=== PATIENT | male | born 1945 | race Caucasian/White ===

== ENCOUNTER → 2016-06-19 | Outpatient (CLI) | payer OTHER, BC ==
[~2016-06-19] MED LIST: CLC100 PO; FRRS300 PO; LRT5 PO; MULT-506 PO; NITR-5 PO; VALA500T60 PO
[2016-06-19 09:55] LABS: BLOOD UREA NITROGEN 21 mg/dl (7-18); CALCIUM 8.7 mg/dl (8.5-10.1); CARBON DIOXIDE 30 mmol/L (21-32); CHLORIDE 110 mmol/L (98-107); CREATININE 0.94 mg/dl (0.60-1.40); GLUCOSE 99 mg/dl (70-99); POTASSIUM 4.3 mmol/L (3.5-5.1); SODIUM 144 mmol/L (136-145)
[2016-06-19 09:58] LABS: CHOLESTEROL 129 mg/dl (0-200); CHOLESTEROL/HDL RATIO 2.9; HDL CHOLESTEROL 45 mg/dl; LDL CHOLESTEROL CALCULATED 65 mg/dl; TRIGLYCERIDES 94 mg/dl (0-150); VERY LOW DENSITY LIPOPROT CALC 19 mg/dl
[2016-06-19 10:25] LABS: ESTIMATED AVERAGE GLUCOSE 111 mg/dl; HA1C FLAG Normal (Normal)
--- NOTE | 2016-06-25 13:08 | CODING QUERY MEDICAL NECESSITY ---
SUPPORTING DIAGNOSIS NEEDED A supporting diagnosis is required for the test/procedure performed on this patient in order for us to be reimbursed by the patient's insurance. Please provide a supporting diagnosis for the following test/procedure listed below next to the test name along with your signature. *If there is no additional diagnosis for this patient that would support the following test/procedure please document that below next to the test/procedure. Test(s)/Procedure(s) that require a supporting diagnosis: * GLYCATED HEMOGLOBIN DIAGNOSIS: * DOS: 06/19/16 Provider Signature: Date: Thank you Madyson Burns Health Information Management Once completed, please kindly fax back to [phone] For questions please call [phone]
== END | disposition home or self-care (01) ==
LOC: C.LAB1850 07:30
PROVIDERS: ATTEND Family Medicine
DX: Z13.1 Encounter for screening for diabetes mellitus (principal); Z13.220 Encounter for screening for lipoid disorders

== ENCOUNTER → 2017-02-08 | Outpatient (CLI) | payer OTHER, BC | END | disposition home or self-care (01) | LOC: C.LAB1850 11:05 | PROVIDERS: ATTEND Urology | DX: C61 Malignant neoplasm of prostate (principal) ==

== ENCOUNTER → 2017-06-18 | Day surgery (SDC) | payer OTHER, BC ==
[2017-05-30 15:19] VITALS: Ht 186.7 cm; Wt 112.7 kg
[~2017-06-18] VITALS: Ht 186.7 cm; Wt 112.7 kg
[~2017-06-18] MED LIST changes: -CLC100 PO; -FRRS300 PO; +LIDOCAINE HCL 2% 2 ML VIAL (20MG/ML) ONE; -LRT5 PO; -MULT-506 PO; -NITR-5 PO; +PROPOFOL IV EMULSION 10 MG/ML 20 ML VIAL IV ONE; +SODIUM CHLORIDE 0.9% 500ML 500 ML IV ONE; -VALA500T60 PO
--- NOTE | 2017-06-18 08:41 | Endo History and Physical ---
History & Physical Date of Service: Jun 18, 2017. Chief Complaint: history of polyps Referring Physician: Dr. Carmelina Day History of Present Illness 72 yo CM who presents for colonoscopy secondary to history of colon polyps. Past Surgical History Hx Cardiac Surgery: No Hx Internal Defibrillator: No Hx Pacemaker: No Hx Abdominal Surgery: Yes (HIATAL HERNIA, APPENDECTOMY) Hx of Implantable Prosthesis: No Hx Post-Op Nausea and Vomiting: No Hx Cancer Surgery: Yes (PROSTATECTOMY) Hx Thoracic Surgery: No Hx Orthopedic: Yes (RIGHT/LEFT SHOULDER ARTHROSCOPY) Hx Urinary Tract Surgery: No Family History None Social History Smoking Status: Former Smoker Hx Substance Use: No Hx Alcohol Use: No Allergies Coded Allergies: Penicillins (Verified Allergy, Unknown, ?, 05/30/17) Current Medications Reported Home Medications Medications Dose Route/Sig Max Daily Dose Days Date Category No Active Prescriptions or Reported Medications Rx Vital Signs Weight (Kilograms): 112.73 Height (Feet): 6 Height (Inches): 1.5 Date Time Temp Pulse Resp B/P (MAP) Pulse Ox O2 Delivery O2 Flow Rate FiO2 06/18/17 08:11 36.6 51 20 181/92 (121) 96 Room Air Physical Exam General Appearance: WD/WN, no apparent distress Respiratory/Chest: Auscultation: breath sounds normal Cardiovascular: Heart Auscultation: RRR Abdomen: Bowel Sounds: normal Inspection & Palpation: soft, non-distended, no tenderness, guarding & rebound Assessment and Plan Assessment: 72 yo CM who presents for colonoscopy secondary to history of colon polyps. Plan: Proceed with colonoscopy.
--- NOTE | 2017-06-18 09:12 | Discharge Instructions ---
Endoscopy Patient Instructions Date / Procedure(s) Performed Jun 18, 2017. Colonoscopy Allergy Information Coded Allergies: Penicillins (Verified Allergy, Unknown, ?, 06/18/17) Discharge Date / Findings Jun 18, 2017. Diverticulosis Internal hemorrhoids Medication Instructions OK to resume all medications today as prescribed Reported Home Medications Medications Dose Route/Sig Max Daily Dose Days Date Category No Active Prescriptions or Reported Medications Rx Provider Instructions Activity Restrictions - No exercising or heavy lifting for 24 hours. - Do not drink alcohol the day of the procedure. - Do not drive a car or operate machinery until the day after the procedure. - Do not make any important decisions or sign important papers in 24 hours after the procedure. Following Day: - Return to full activity which may include returning to work/school. Diet Start your diet with liquids and light foods (jello, soup, juice, toast). Then eat your usual diet if not nauseated. Treatment For Common After Affects For mild abdominal pain, bloating, or excessive gas: - Rest - Eat lightly - Lie on right side Follow-Up Information Follow-up with Dr. Carmelina Day as scheduled Anesthesia Information What You Should Know You have had a procedure that required some medicine to reduce anxiety and discomfort. This treatment is called moderate sedation. After receiving the treatment, you may be sleepy, but you will be able to breathe on your own. The effects of the treatment may last for several hours. Follow these instructions along with Activity/Diet recommendations noted above: * Do NOT do anything where dizziness or clumsiness would be dangerous. * Rest quietly at home today, then you can be up and about tomorrow. * Have a responsible person stay with you the rest of today. * You may have had an I.V. today. If so, you may take the dressing off later today. Recommendations Call your doctor if: * Trouble breathing * Continuous vomiting for more than 24 hours * Temperature above 101 degrees * Severe abdominal pain or bloating * Pain not relieved by pain medicine ordered * There is increased drainage or redness from any incision * A large amount of rectal bleeding greater than 2-3 tablespoons. (If you had a polyp/s removed or have hemorrhoids, a small amount of blood - from the rectum is to be expected.) * You have any unanswered questions or concerns. IN THE EVENT OF A SERIOUS EMERGENCY, GO TO THE NEAREST EMERGENCY ROOM Your discharge instructions were prepared by provider Kip Linares. Patient Instructions Signature Page Ruben Garrett Patient (or Guardian) Signature/Date: I have read and understand the instructions given to me by my caregivers. Caregiver/RN/Doctor Signature/Date: The above-named patient and/or guardian has received patient instructions on this date. + Original Patient Signature Page (only) stays with chart. Please make copy for patient.
--- NOTE | 2017-06-18 09:19 | GI REPORT ---
Procedure Date: 06/18/2017 8:47 AM Procedure: Colonoscopy Indications: High risk colon cancer surveillance: Personal history of colonic polyps Medicines: Monitored Anesthesia Care Complications: No immediate complications. Estimated Blood Loss: Estimated blood loss: none. Procedure: Pre-Anesthesia Assessment: - Prior to the procedure, a History and Physical was performed, and patient medications and allergies were reviewed. The patient's tolerance of previous anesthesia was also reviewed. The risks and benefits of the procedure and the sedation options and risks were discussed with the patient. All questions were answered, and informed consent was obtained. Prior Anticoagulants: The patient has taken no previous anticoagulant or antiplatelet agents. ASA Grade Assessment: II - A patient with mild systemic disease. After reviewing the risks and benefits, the patient was deemed in satisfactory condition to undergo the procedure. After I obtained informed consent, the scope was passed under direct vision. Throughout the procedure, the patient's blood pressure, pulse, and oxygen saturations were monitored continuously. The scope was introduced through the anus and advanced to the terminal ileum. The colonoscopy was performed without difficulty. The patient tolerated the procedure well. The quality of the bowel preparation was good. The terminal ileum, ileocecal valve, appendiceal orifice, and rectum were photographed. Findings: The perianal and digital rectal examinations were normal. Multiple small-mouthed diverticula were found in the sigmoid colon. Non-bleeding internal hemorrhoids were found during retroflexion. The hemorrhoids were small. Impression: - Diverticulosis in the sigmoid colon. - Non-bleeding internal hemorrhoids. - No specimens collected. Recommendation: - Resume previous diet. - Continue present medications. - No repeat colonoscopy due to age and the absence of advanced adenomas. - Return to primary care physician as previously scheduled. Kip Linares DO 06/18/2017 9:19:14 AM This report has been signed electronically. Note Initiated On: 06/18/2017 8:47 AM I attest to the content of the Intraoperative Record and orders documented therein, exceptions below
[2017-06-18 09:55] VITALS: BP 168/93; PULSE 51; O2SAT 98
--- NOTE | 2017-06-18 10:24 | Anesthesiology Progress Note ---
Anesthesia Post Op Note Date & Time Jun 18, 2017 at 10:24 Vital Signs Pain Intensity: 0 Vital Signs Past 12 Hours Date Time Temp Pulse Resp B/P (MAP) Pulse Ox O2 Delivery O2 Flow Rate FiO2 06/18/17 09:55 51 20 168/93 (118) 98 Room Air 06/18/17 09:36 52 20 149/88 (108) 97 Room Air 06/18/17 09:19 61 20 127/80 (96) 95 Room Air 06/18/17 08:11 36.6 51 20 181/92 (121) 96 Room Air Notes Mental Status: alert / awake / arousable, participated in evaluation Pt Amnestic to Procedure: Yes Nausea / Vomiting: adequately controlled Pain: adequately controlled Airway Patency, RR, SpO2: stable & adequate BP & HR: stable & adequate Hydration State: stable & adequate Anesthetic Complications: no major complications apparent
== END | disposition home or self-care (01) ==
LOC: C.GI 07:36
PROVIDERS: ATTEND Internal Medicine
DX: Z12.11 Encounter for screening for malignant neoplasm of colon (principal); K57.30 Diverticulosis of large intestine without perforation or abscess without bleeding; K64.8 Other hemorrhoids; Z86.010 Personal history of colon polyps; Z85.46 Personal history of malignant neoplasm of prostate; Z88.0 Allergy status to penicillin; Z90.89 Acquired absence of other organs; Z98.890 Other specified postprocedural states; Z87.891 Personal history of nicotine dependence

== ENCOUNTER 2022-08-14 15:43 | Observation (INO) ==
--- NOTE | 2022-08-14 15:48 | ED Triage Note ---
Date of Service August 14, 2022 History of Present Illness This patient was briefly evaluated while in triage. An abbreviated physical exam was performed. This patient is a 77-year-old Male who presents to the ED for evaluation of double vision, head pressure, and diaphoresis. Patient states he was on his way to work when these symptoms presented. He reports having multiple similar episodes in the last week. He denies recent illness, fever/chills, n/v, diarrhea, chest pain, SOB, abdominal. Denies stroke like symptoms. Physical Exam Constitutional: alert and oriented x3. no acute distress. HEENT: normocephalic, atraumatic. normal conjunctiva.PERRLA. EOM's grossly intact. Respiratory: lungs are clear to auscultation without wheezes, rhonchi, or rales bilaterally. equal chest rise. normal respiratory effort, no accessory muscle use. Cardiovascular: normal heart sounds without murmur. regular rate and rhythm. GI: abdomen is soft, nontender. No palpable masses. No rebound tenderness or guarding. No CVA tenderness MSK: moves all 4 extremities spontaneously Peripheral vascular: extremities warm and well perfused Neuro: without focal neuro deficits. Psych:appropriate mood and affect. Initial orders for labs and / or imaging were placed and patient was placed in the waiting area until a bed is available. Please see further documentation for the full ED course.
[2022-08-14 16:27] LABS: Basophils # (auto) 0.04 K/uL (0-0.2); Basophils % (auto) 0.6 %; Eosinophils # (auto) 0.15 K/uL (0-0.50); Eosinophils % (auto) 2.4 %; Hemoglobin 14.9 g/dl (14.0-18.0); Immature Granulocytes # (auto) 0.01 K/uL (0.01-0.20); Immature Granulocytes % (auto) 0.2 %; Lymphocytes # (auto) 1.77 K/uL (1.2-3.4); Lymphocytes % (auto) 27.9 %; Mean Corpuscular Hemoglobin 32.3 pg (25.0-34.0); Mean Corpuscular Hgb Conc 34.7 g/dL (32.0-36.0); Mean Corpuscular Volume 93.3 fL (80.0-100.0); Mean Platelet Volume 10.9 fL (9.4-12.4); Monocytes % (auto) 9.5 %; Neutrophils # (auto) 3.77 K/uL (1.40-6.50); Neutrophils % (auto) 59.4 %; Platelet Count 211 K/uL (130-400); RDW Coefficient of Variation 13.2 % (11.5-14.5); RDW Standard Deviation 45.1 fL (36.4-46.3); Red Blood Count 4.61 M/uL (4.70-6.10); White Blood Count 6.34 K/ul (4.8-10.8)
[2022-08-14 16:37] LABS: Partial Thromboplastin Time 28.2 Seconds (21.0-31.0); Prothrombin Time 10.9 Seconds (9.0-12.0)
[2022-08-14 16:45] LABS: Albumin Level 4.3 gm/dl (3.4-5.0); Bilirubin,Total 0.5 mg/dl (0.2-1.0); Calcium 9.2 mg/dl (8.6-10.3); Potassium 4.4 mmol/L (3.5-5.1)
[2022-08-14 16:51] LABS: Albumin Globulin Ratio 1.5 (0.9-2); Creatinine Clr Calc Pharmacy 68.3 ml/min; Est GFR (African American) 80.5 ml/min; Est GFR (Non-African American) 69.4 ml/min; Globulin 2.8 gm/dl (2.5-4.0); Total Protein 7.1 gm/dl (6.0-8.3); Troponin I High Sensitivity 24.3 pg/ml (0-20)
--- NOTE | 2022-08-14 17:15 | CT Scan Report ---
CT head/brain wo con CLINICAL HISTORY: double vision, headache Technique: Contiguous axial CT images of the head were acquired from the base of the skull to the marycruz ruma without intravenous contrast administration. Images were viewed in brain, subdural and [facility]. Automated dose lowering techniques and/or adjustment according to patient size were utilized for this exam. Comparison: None available at the time of this dictation. Findings: Areas of decreased attenuation are present in the periventricular and subcortical white matter bilate rally consistent with small vessel ischemic disease. Generalized cerebral atrophy with commensurate e nlargement of the ventricles, sulci, and cisterns is also present. There is no acute intracranial hem orrhage or evidence of acute territorial infarction. No shift of the midline structures, mass effect, or extra-axial abnormalities are shown. Atherosclerotic calcifications are present in the intracran ial segments of the internal carotid arteries. Imaged portions of the paranasal sinuses and mastoid air cells are clear. The orbits appear normal. There are no acute fractures of the calvaria or scalp swelling. Impression: No acute intracranial hemorrhage, no evidence of acute territorial infarction or other acute intracra nial disease process. ACT 112: Negative or not required by law. Electronically signed by: Mike Villatoro M.D. 08/14/2022 5:14 PM
--- NOTE | 2022-08-14 19:58 | Emergency Department Note ---
Impression & Plan Atrial fibrillation, new onset, Blurry vision, bilateral, Elevated troponin, Weakness ED Provider Note NAME: NAVYA OZUNA AGE: 77 SEX: M : 1945 ARRIVES VIA: Walk-In INFORMANT: Patient, ED PROVIDER(S): Nguyễn Wilson MD CHIEF COMPLAINT: Lightheadedness, dizziness, fatigue MEDICAL DECISION MAKING: Patient presents to concern for lightheadedness and dizziness as well as feeling as though his arm seemed heavy. The patient was noted to be in A-fib. IV was established and blood work obtained. Repeat EKG obtained which shows A-fib. The patient has had 6 episodes in the last 8 weeks most recently today as well as an episode on Saturday. Patient has never had any formal echocardiogram. The patient's blood work shows a mild leukopenia with a normal H&H and platelet count. Kidney function is unremarkable. Troponin is slightly elevated at 24.3. No active chest pain or shortness of breath. Lyme is negative. COVID-negative. I did speak with the on-call hospital service Dr. Brock and the patient was admitted to the medicine service. IV heparin was ordered. Critical Care: I have personally spent 36 minutes of critical care time in direct management of this patient. This includes bedside care, interpretation of diagnostic studies, and testing, discussion with consultants, patient, and family members, and other require inpatient management activities. This 36 minutes is in excess of all [facility] billable procedures. Prior /Outside records reviewed: I did review a wellness visit from Ivis lepe from January 2022 which was just for a general wellness exam. Differential diagnosis: Infection, dehydration, metabolic abnormality, hypo/hyperglycemia, electrolyte disturbance, anemia, hypoxia, cardiac sources, intracerebral event, toxicologic, neurologic, as well as other pathologies. Diagnostics, as interpreted by me: ECG:A-fib, rate of 72, normal QRS, left axis deviation no ST elevations. Repeat EKG interpreted by me A-fib, rate of 63, normal QRS normal axis no ST elevations. Cardiac monitoring: An order was placed for continuous cardiac monitoring. The monitor shows a rate of 67 with irregular irregular rhythm. Patient was placed on pulse oximetry Medical decision rules: None Imaging studies: See below I informally reviewed the patient's CT of the head which showed no obvious ICH HPI: Patient presents due to concern for some associated blurry vision and head pressure as well as feeling as though his arm was heavy. Patient states that he had several episodes in the last 8 weeks. Patient denies any chest pains or shortness of breath. Patient denies any falls or trauma. Patient states that the episode today that he was out riding some stumps and working on his truck when he had an acute onset of this associated feeling of weakness. Patient denies any acute symptoms at this time other than feeling "drained." Patient denies any tobacco or drug use. The patient denies any falls or trauma. Patient states that the symptoms last about 10 to 15 minutes. Patient denies any slurred speech facial droop numbness tingling or focal weakness at this time. Patient does complain of generalized weakness. Patient does not take any medications. Patient states that his most recent wellness visit was with Dr. Pritchard in January with no issues at that time. PAST MEDICAL HISTORY: See Below PAST SURGICAL HISTORY: See Below SOCIAL HISTORY: See Below HOME MEDICATIONS: See Below ALLERGIES: See Below VITALS: See Below PHYSICAL EXAMINATION: GENERAL: NAD, non-toxic. EYE EXAM: Normal conjunctiva. PERRL, no anisocoria and EOM's grossly intact w/o pain. NECK: Supple, no nuchal rigidity, no adenopathy, non-tender. No signs of meningismus. FROM of the neck with good chin to chest and neck extension. No stridor. LUNGS: Clear to auscultation. Normal chest wall mechanics. HEART: Irregularly irregular, no MRG. ABDOMEN: Abdomen soft, non-tender, no masses, no rebound or guarding. BACK: No CVA TTP. SKIN: No rashes and no bruising. UPPER EXTREMITIES: Several absent digits of the right hand compared to left, well-healed. Otherwise upper extremities are grossly unremarkable LOWER EXTREMITIES: Grossly normal, no edema. NEURO EXAM: A&O x3, cranial nerves II-XII grossly intact, normal speech, moves all 4 extremities. Good [id number], no drift and no sensory deficits Past Med/Surg History Medical History Esophageal reflux Prostate cancer Prostate cancer Surgical History H/O rotator cuff surgery History of appendectomy S/P appendectomy S/P prostatectomy S/P shoulder surgery S/P wisdom tooth extraction Family History Father Emphysema lung Sister Breast cancer Brother Diabetes Mother Leukemia Denies family history of Ovarian cancer Prostate cancer Myocardial infarction Colorectal cancer Social History Smoking Status: Never smoker Age Started Using Tobacco: 14; Age Quit Using Tobacco: 39; packs per day: 1.0; Second Hand Exposure: Yes; Do You Dip or Chew Tobacco: No; Hx Alcohol Use: No Hx Substance Use: No Preferred Language: Slovenian Communication Ability: Effective Visual Impairment: No Limitations Hearing Ability: Normal Wire Welder Required: No Beliefs That Will Affect Care: None marital status: Current Living Situation: Spouse current occupational status: employed 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 How many Children do You have: 1 How many Children do You have Comment: 1 daughter and 2 people considered daughters/ 3 grandchildren Feels Safe at Home: Yes Childhood Exposure to Second-Hand Smoke: Yes Diet: regular caffeine: Yes during the past year weight has: remained stable Dental Care, Regularly: Yes Physical Activity Frequency: Daily Seatbelt Use: always Sunscreen Use: Yes Assistive Devices: Denture - Upper, Denture - Lower and Glasses Allergies Allergies Allergy/AdvReac Type Severity Reaction Status Date / Time Penicillins Allergy Unknown Verified 02/06/22 08:53 Home Meds Home Medications Medication Instructions Recorded Confirmed No Known Home Medications 01/30/21 08/15/22 Results & Data (ED) Vital Signs Vital Signs - 24 hr 08/14/22 15:45 08/14/22 19:54 08/14/22 19:53 Temperature 36.7 C Temperature Source Temporal Artery Scan Pulse Rate 74 74 77 Respiratory Rate 20 19 Respiratory Effort / Characteristics Non-Labored Spontaneous Respiratory Depth Normal Respiratory Pattern Regular Blood Pressure 161/93 H Blood Pressure Mean 115 Pulse Oximetry 96 97 Oxygen Delivery Method Room Air Room Air Sepsis Recent Fever Within 48 Hours No Sepsis New/Unexplained Change in Mental Status No Sepsis Action Taken by Nursing No Action Required 08/14/22 20:00 08/14/22 20:00 08/14/22 20:15 Temperature Temperature Source Pulse Rate 78 74 Respiratory Rate 22 13 Respiratory Effort / Characteristics Respiratory Depth Respiratory Pattern Blood Pressure 172/116 H Blood Pressure Mean 134 Pulse Oximetry 97 93 Oxygen Delivery Method Room Air Room Air Sepsis Recent Fever Within 48 Hours Sepsis New/Unexplained Change in Mental Status Sepsis Action Taken by Nursing 08/14/22 20:30 08/14/22 20:45 08/14/22 21:00 Temperature Temperature Source Pulse Rate 79 75 73 Respiratory Rate 20 21 24 Respiratory Effort / Characteristics Respiratory Depth Respiratory Pattern Blood Pressure 195/125 H Blood Pressure Mean 148 Pulse Oximetry 97 94 96 Oxygen Delivery Method Room Air Room Air Room Air Sepsis Recent Fever Within 48 Hours Sepsis New/Unexplained Change in Mental Status Sepsis Action Taken by Nursing 08/14/22 21:30 08/14/22 21:36 Temperature Temperature Source Pulse Rate 75 73 Respiratory Rate 23 17 Respiratory Effort / Characteristics Respiratory Depth Respiratory Pattern Blood Pressure 171/106 H Blood Pressure Mean 127 Pulse Oximetry 97 94 Oxygen Delivery Method Room Air Room Air Sepsis Recent Fever Within 48 Hours Sepsis New/Unexplained Change in Mental Status Sepsis Action Taken by Assisted Medications Current Medication List: was personally reviewed by me Laboratory Data Attestation: I reviewed the patient's lab results. 08/14/22 16:16 08/14/22 16:16 Lab Results 08/14/22 08/14/22 08/14/22 Range/Units 16:16 16:16 16:16 WBC 6.34 (4.8-10.8) K/ul RBC 4.61 L (4.70-6.10) M/uL Hgb 14.9 (14.0-18.0) g/dl Hct 43.0 (42.0-52.0) % MCV 93.3 (80.0-100.0) fL MCH 32.3 (25.0-34.0) pg MCHC 34.7 (32.0-36.0) g/dL RDW Std Deviation 45.1 (36.4-46.3) fL RDW Coeff of Romi 13.2 (11.5-14.5) % Plt Count 211 (130-400) K/uL MPV 10.9 (9.4-12.4) fL Immature Gran % (Auto) 0.2 % Neut % (Auto) 59.4 % Lymph % (Auto) 27.9 % [place] % (Auto) 9.5 % Eos % (Auto) 2.4 % Baso % (Auto) 0.6 % Neut # (Auto) 3.77 (1.40-6.50) K/uL Lymph # (Auto) 1.77 (1.2-3.4) K/uL [place] # (Auto) 0.60 H (0.11-0.59) K/uL Eos # (Auto) 0.15 (0-0.50) K/uL Baso # (Auto) 0.04 (0-0.2) K/uL Immature Gran # (Auto) 0.01 (0.01-0.20) K/uL PT 10.9 (9.0-12.0) Seconds INR 1.0 (0.9-1.1) APTT 28.2 (21.0-31.0) Seconds PTT Ratio 1.0 Sodium 141 (136-145) mmol/L Potassium 4.4 (3.5-5.1) mmol/L Chloride 108 H (98-107) mmol/L Carbon Dioxide 27 (21-32) mmol/L Anion Gap 6 (3-11) BUN 27 H (6-23) mg/dl Creatinine 1.04 (0.6-1.4) mg/dl Est Cr Clr Drug Dosing 68.3 ml/min Est GFR ( Amer) 80.5 ml/min Est GFR (Non-Af Amer) 69.4 ml/min BUN/Creatinine Ratio 26.0 H (10-20) Glucose 101 H (70-99(Fasting)) mg/dl Calcium 9.2 (8.6-10.3) mg/dl Total Bilirubin 0.5 (0.2-1.0) mg/dl AST 19 (13-39) U/L ALT 16 (7-52) U/L Alkaline Phosphatase 72 (34-104) U/L Troponin I High Sens 24.3 H (0-20) pg/ml Total Protein 7.1 (6.0-8.3) gm/dl Albumin 4.3 (3.4-5.0) gm/dl Globulin 2.8 (2.5-4.0) gm/dl Albumin/Globulin Ratio 1.5 (0.9-2) Lyme Disease IgG Ab (Negative) Lyme Disease IgM Ab (Negative) SARS-CoV-2, RNA, NAAT (NEGATIVE) 08/14/22 08/14/22 Range/Units 16:16 20:20 WBC (4.8-10.8) K/ul RBC (4.70-6.10) M/uL Hgb (14.0-18.0) g/dl Hct (42.0-52.0) % MCV (80.0-100.0) fL MCH (25.0-34.0) pg MCHC (32.0-36.0) g/dL RDW Std Deviation (36.4-46.3) fL RDW Coeff of Romi (11.5-14.5) % Plt Count (130-400) K/uL MPV (9.4-12.4) fL Immature Gran % (Auto) % Neut % (Auto) % Lymph % (Auto) % [place] % (Auto) % Eos % (Auto) % Baso % (Auto) % Neut # (Auto) (1.40-6.50) K/uL Lymph # (Auto) (1.2-3.4) K/uL [place] # (Auto) (0.11-0.59) K/uL Eos # (Auto) (0-0.50) K/uL Baso # (Auto) (0-0.2) K/uL Immature Gran # (Auto) (0.01-0.20) K/uL PT (9.0-12.0) Seconds INR (0.9-1.1) APTT (21.0-31.0) Seconds PTT Ratio Sodium (136-145) mmol/L Potassium (3.5-5.1) mmol/L Chloride (98-107) mmol/L Carbon Dioxide (21-32) mmol/L Anion Gap (3-11) BUN (6-23) mg/dl Creatinine (0.6-1.4) mg/dl Est Cr Clr Drug Dosing ml/min Est GFR ( Amer) ml/min Est GFR (Non-Af Amer) ml/min BUN/Creatinine Ratio (10-20) Glucose (70-99(Fasting)) mg/dl Calcium (8.6-10.3) mg/dl Total Bilirubin (0.2-1.0) mg/dl AST (13-39) U/L ALT (7-52) U/L Alkaline Phosphatase (34-104) U/L Troponin I High Sens (0-20) pg/ml Total Protein (6.0-8.3) gm/dl Albumin (3.4-5.0) gm/dl Globulin (2.5-4.0) gm/dl Albumin/Globulin Ratio (0.9-2) Lyme Disease IgG Ab Negative (Negative) Lyme Disease IgM Ab Negative (Negative) SARS-CoV-2, RNA, NAAT NEGATIVE (NEGATIVE) Administered Medications Heparin Sodium/Dextrose (Heparin Sodium/Dextrose) 25,000 units in 500 mls @ 33 mls/hr IV .[id number] [facility]; Protocol Stop: 09/13/22 20:44 Last Titration: 08/15/22 06:00 Dose: 1,650 units/hr, 33 mls/hr Documented By: DULCE MARIA Co-signed By: CAMILA Titration: 08/15/22 06:00 Dose: 131 units/hr, 2.6 mls/hr Documented By: DULCE MARIA Co-signed By: ADOLFO Admin: 08/14/22 20:53 Dose: 1,550 units/hr, 31 mls/hr Documented By: MELIDA Co-signed By: JERRY Discontinued Medications Gadobutrol (Gadobutrol 65ml Vial) 10 ml IV ONCE ONE Stop: 08/15/22 01:27 Last Admin: 08/15/22 01:27 Dose: 10 ml Documented By: MIGUEL Sodium Chloride (Nss 1000ml) 500 mls @ 999 mls/hr IV .Q31M ONE Stop: 08/14/22 20:44 Last Infusion: 08/14/22 20:51 Dose: 0 mls/hr Documented By: Admin: 08/14/22 20:22 Dose: 999 mls/hr Documented By: MELIDA Imaging Data Radiologist's Impression: Head CT 08/14/22 15:51 CT head/brain wo con CLINICAL HISTORY: double vision, headache Technique: Contiguous axial CT images of the head were acquired from the base of the skull to the vertex without intravenous contrast administration. Images were viewed in brain, subdural and bone windows. Automated dose lowering techniques and/or adjustment according to patient size were utilized for this exam. Comparison: None available at the time of this dictation. Findings: Areas of decreased attenuation are present in the periventricular and subcortical white matter bilaterally consistent with small vessel ischemic disease. Generalized cerebral atrophy with commensurate enlargement of the ventricles, sulci, and cisterns is also present. There is no acute intracranial hemorrhage or evidence of acute territorial infarction. No shift of the midline structures, mass effect, or extra-axial abnormalities are shown. Atherosclerotic calcifications are present in the intracranial segments of the internal carotid arteries. Imaged portions of the paranasal sinuses and mastoid air cells are clear. The orbits appear normal. There are no acute fractures of the calvaria or scalp swelling. Impression: No acute intracranial hemorrhage, no evidence of acute territorial infarction or other acute intracranial disease process. ACT 112: Negative or not required by law. Electronically signed by: Mike Villatoro M.D. 08/14/2022 5:14 PM Discharge Plan Visit Data Chief Complaint: TIA Symptoms Stated Complaint: DOUBLE VISION,SWEATING,PRESSURE FRONT OF HEAD ED Provider: Nguyễn Wilson Discharge Problem: Atrial fibrillation, new onset, Blurry vision, bilateral, Elevated troponin, Weakness Discharge Instructions Interventions: ED Discharge Assessment Last Done: 08/14/22 22:46
[2022-08-14] MEDS ORDERED: SODIUM CHLORIDE 0.9% 1000ML 500 ML IV ONE (20:14)
[2022-08-14] MEDS ORDERED: Heparin IV Adult Wt-Based Standard *NO* Bolus Protocol IV ONE (20:16)
[2022-08-14] MEDS ORDERED: HEPARIN SODIUM/DEXTROSE 25,000 UNITS/500 ML BAG IV SCH (20:45)
--- NOTE | 2022-08-14 21:37 | History & Physical Report ---
Date of Service August 14, 2022 Assessment & Plan (1) Blurry vision, bilateral: Plan: 77 y/o male with a PMHx significant for prostate cancer s/p prostatectomy in remission here for evaluation of intermittent blurry vision with associated head pressure and occasional right arm weakness found to be in a fib, but admitted with concern for vertebral artery dissection. #Blurry Vision #Head Pressure #?Right arm weakness Patient presented with several instances of blurry vision and head pressure. There is also questionable right arm involvement with symptoms described as "arm in midair" and "feeling out of control". These symptoms more concerning for neurological etiology especially with the history of chiropractic manipulation of the neck. CT Head w/o was done in the ED and negative for intracranial abnormalities. High concern for arterial dissection. Would recommend further imaging of the vasculature of the MRA Head w/o, MRA Neck with/w/o and MRI brain w/o contrast. Lyme testing was also ordered. [] f/u MRI studies [] f/u Lyme [] AM BMP - Cr on admit 1.04 #A fib Patient found to be in atrial fibrillation with normal ventricular rate. Patient's symptoms likely unrelated as he is having bilateral blurry vision and head pressure associated with fatigue. Reasonable to continue with heparin as it was already started. Will plan for ECHO during hospital course. [] ECHO #Elevated troponin HsTrop slightly elevated at 24.3. Will trend [] f/u 12:00 Trop #Hypertensive state without diagnosis of HTN Patient typically normotensive. Would continue to monitor at this time as patient is hospitalized. #Prostate Cancer Patient s/p prostatectomy which has been curative. Code status: full DVT ppx: heparin gtt FENGI: Regular Diet Dispo: PCU/Tele See attending attestation for further documentation. (2) Pressure in head: (3) Atrial fibrillation with normal ventricular rate: (4) Prostate cancer: (5) Elevated troponin: (6) Elevated blood pressure reading without diagnosis of hypertension: History of Present Illness Chief Complaint: blurry vision, head pressure Primary Care Provider: Carmelina Day MD 77 y/o male with a PMHx significant for prostate cancer s/p prostatectomy in rem ission here for evaluation of intermittent blurry vision with associated head pressure and occasional right arm weakness. Patient has had five episodes of the above symptoms that last about 10-15 mi nutes in duration starting about 5-6 weeks ago. Most recent episodes were 08/12 and 08/13. The rapid sequence of symptoms prompted him to seek evaluation. He was prompted to the ED by his PCP. He denies any extremity pain/numbness/tingling with these episodes, urinary or fecal incontinence, CP, or SOB. Prior to this the patient was in good health with no chronic conditions. He does not take any medications. Of note patient sees a chiropractor monthly for HVLA of the cervical spine. In the ED he was hypertensive to 172/116. EKG notable for atrial fibrillation. Patient was started on heparin. Labs: Notable for HsTrop 24.3. Otherwise CBC CMP PT/PTT/INR unremarkable. Imaging: CT Head w/o Allergies Allergy/AdvReac Type Severity Reaction Status Date / Time Penicillins Allergy Unknown Verified 02/06/22 08:53 Home Medications Medication Instructions Recorded Confirmed Type No Known Home Medications 01/30/21 08/15/22 History apixaban 5 mg tablet (Eliquis) 5 mg PO BID #60 tabs 08/15/22 Rx lisinopril 20 mg tablet 20 mg PO DAILY #30 tabs 08/15/22 Rx Past Med/Surg History Medical History Esophageal reflux Prostate cancer Prostate cancer Surgical History H/O rotator cuff surgery History of appendectomy S/P appendectomy S/P prostatectomy S/P shoulder surgery S/P wisdom tooth extraction Family History Father Emphysema lung Sister Breast cancer Brother Diabetes Mother Leukemia Denies family history of Ovarian cancer Prostate cancer Myocardial infarction Colorectal cancer Social History Smoking Status: Never smoker Age Started Using Tobacco: 14; Age Quit Using Tobacco: 39; packs per day: 1.0; Second Hand Exposure: Yes; Do You Dip or Chew Tobacco: No; Hx Alcohol Use: No Hx Substance Use: No Preferred Language: Italian Communication Ability: Effective Visual Impairment: No Limitations Hearing Ability: Normal Geospatial Technologist Required: No Beliefs That Will Affect Care: None marital status: Current Living Situation: Spouse current occupational status: employed 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 How many Children do You have: 1 How many Children do You have Comment: 1 daughter and 2 people considered daughters/ 3 grandchildren Feels Safe at Home: Yes Childhood Exposure to Second-Hand Smoke: Yes Diet: regular caffeine: Yes during the past year weight has: remained stable Dental Care, Regularly: Yes Physical Activity Frequency: Daily Seatbelt Use: always Sunscreen Use: Yes Assistive Devices: Denture - Upper, Denture - Lower and Glasses Physical Exam Physical Exam: Gen: well appearing pleasant male in NAD HEENT: AT NC PERRL EOMI Resp: CTAB CV: irregularly irregular, no murmurs, rubs, or gallops, 2+ peripheral pulses Abd: soft, non-tender, non-distended, no palpable HSM or masses Skin: warm, well perfused, no rashes or bruising noted Psych: appropriate mood and affect MSK: no gross deformities Neuro: Gen: A&O x4 CN II-XII tested - intact and symmetric Strength: 5/5 in all muscle groups Reflexes: DTR 2+ symmetric Sensation: sensation to light touch intact and symmetric bilaterally Results & Data Results & Data Vital Signs (Past 12 Hours) Vital Signs Temp Pulse Resp BP Pulse Ox O2 Del Method 08/14/22 20:45 75 21 94 Room Air 08/14/22 20:30 79 20 97 Room Air 08/14/22 20:15 74 13 93 Room Air 08/14/22 20:00 172/116 H 08/14/22 20:00 78 22 97 Room Air 08/14/22 19:53 77 19 97 Room Air 08/14/22 19:54 74 08/14/22 15:45 36.7 C 74 20 161/93 H 96 Room Air Laboratory Results 08/14/22 16:16 08/14/22 16:[address] 08/14/22 15:51 CT head/brain wo con CLINICAL HISTORY: double vision, headache Technique: Contiguous axial CT images of the head were acquired from the base of the skull to the vertex without intravenous contrast administration. Images were viewed in brain, subdural and bone windows. Automated dose lowering techniques and/or adjustment according to patient size were utilized for this exam. Comparison: None available at the time of this dictation. Findings: Areas of decreased attenuation are present in the periventricular and subcorti janice white matter bilaterally consistent with small vessel ischemic disease. Generalized cerebral atrophy with commensurate enlargement of the ventricles, sulci, and cisterns is also present. There is no acute intracranial hemorrhage or evidence of acute territorial infarction. No shift of the midline structures, mass effect, or extra-axial abnormalities are shown. Atherosclerotic calcifications are present in the intracranial segments of the internal carotid arteries. Imaged portions of the paranasal sinuses and mastoid air cells are clear. The orbits appear normal. There are no acute fractures of the calvaria or scalp swelling. Impression: No acute intracranial hemorrhage, no evidence of acute territorial infarction or other acute intracranial disease process. Supervising Physician Co-Signing Physician Notes Attending addendum: I have physically seen this patient, have supervised the medical residents activities, and agree with the H&P unless as otherwise noted. Assessment and Plan: TIA-like symptoms- Patient describes episodes of blurred vision with head pressure CT head without contrast performed in ED is negative Needs additional neurologic work-up Order MRI brain, MRA head and MRA neck Order Lyme testing Atrial fibrillation- By history he may have had some ectopy intermittent episodes of the past few weeks Concerned about the possibility of stroke secondary to atrial fibrillation Continue heparin drip per protocol Hypertension- Allow permissive hypertension for now, until imaging returns Prostate cancer- Status post prostatectomy Follow-up as outpatient Remaining orders and notations as noted Resident Activity Tracking Resident Involvement: Resident Care Provided Care Provided: Adult [facility] Medicine
[2022-08-14] MEDS ORDERED: ACETAMINOPHEN 325 MG TAB PO PRN (21:40)
[2022-08-14 22:52] LABS: Lyme Ab IgG w/WB Rflx Negative (Negative); Lyme Ab IgM w/WB Rflx Negative (Negative)
[2022-08-15] MEDS ORDERED: GADOBUTROL 65ML VIAL IV ONE (01:26)
--- NOTE | 2022-08-15 01:39 | Magnetic Resonance Report ---
Exam(s): MRA NECK W/WO Contrast EXAM: MR Angiography Neck Without and With Intravenous Contrast CLINICAL HISTORY: Reason for exam: r/o dissection. TECHNIQUE: Magnetic resonance angiography images of the neck without and with intravenous contrast. CONTRAST: Contrast must be dictated COMPARISON: No relevant prior studies available. FINDINGS: Right common carotid artery: Unremarkable. No significant stenosis. No dissection or occlusion. Right internal carotid artery: Unremarkable. Extracranial segment is patent with no significant stenosis. No dissection or occlusion. Right external carotid artery: Unremarkable. No occlusion. Right vertebral artery: Unremarkable. No significant stenosis. No dissection or occlusion. Left common carotid artery: Unremarkable. No significant stenosis. No dissection or occlusion. Left internal carotid artery: Unremarkable. Extracranial segment is patent with no significant stenosis. No dissection or occlusion. Left external carotid artery: Unremarkable. No occlusion. Left vertebral artery: Unremarkable. No significant stenosis. No dissection or occlusion. Soft tissues: Unremarkable as visualized. CAROTID STENOSIS REFERENCE USING NASCET CRITERIA: % ICA stenosis = (1 - narrowest ICA diameter/diameter of distal cervical ICA) x 100. Mild - <50% stenosis. Moderate - 50-69% stenosis. Severe - 70-94% stenosis. Near occlusion - 95-99% stenosis. Occluded - 100% stenosis. IMPRESSION: Normal neck MRA. Electronically signed by: Alfa Edwards MD 08/15/22 01:39 AM
--- NOTE | 2022-08-15 01:41 | Magnetic Resonance Report ---
Exam(s): MRI HEAD Without Contrast EXAM: MR Head Without Intravenous Contrast CLINICAL HISTORY: Reason for exam: r/o dissection. TECHNIQUE: Magnetic resonance images of the head/brain without intravenous contrast in multiple planes. COMPARISON: No relevant prior studies available. FINDINGS: Brain: The cerebral and cerebellar sulci are mildly prominent consistent with mild brain atrophy. There are a few punctate areas of abnormal T2 signal in the deep cerebral white matter most consistent with mild small vessel ischemic/degenerative changes. No hemorrhage. Ventricles: Unremarkable. No ventriculomegaly. Bones/joints: Unremarkable. Sinuses: Unremarkable as visualized. No acute sinusitis. Mastoid air cells: Unremarkable as visualized. No mastoid effusion. Orbits: Unremarkable as visualized. IMPRESSION: No acute findings in the head/brain. Electronically signed by: Alfa Edwards MD 08/15/22 01:40 AM
--- NOTE | 2022-08-15 01:42 | Magnetic Resonance Report ---
Exam(s): MRA HEAD Without Contrast EXAM: MR Angiography Head Without Intravenous Contrast CLINICAL HISTORY: Reason for exam: r/o dissection. TECHNIQUE: Magnetic resonance angiography images of the head without intravenous contrast. COMPARISON: No relevant prior studies available. FINDINGS: Right internal carotid artery: No acute findings. Intracranial segment is patent with no significant stenosis. No aneurysm. Right anterior cerebral artery: Unremarkable. No occlusion or significant stenosis. No aneurysm. Right middle cerebral artery: Unremarkable. No occlusion or significant stenosis. No aneurysm. Right posterior cerebral artery: Unremarkable. No occlusion or significant stenosis. No aneurysm. Right vertebral artery: Unremarkable as visualized. Left internal carotid artery: No acute findings. Intracranial segment is patent with no significant stenosis. No aneurysm. Left anterior cerebral artery: Unremarkable. No occlusion or significant stenosis. No aneurysm. Left middle cerebral artery: Unremarkable. No occlusion or significant stenosis. No aneurysm. Left posterior cerebral artery: Unremarkable. No occlusion or significant stenosis. No aneurysm. Left vertebral artery: Unremarkable as visualized. Basilar artery: Unremarkable. No occlusion or significant stenosis. No aneurysm. IMPRESSION: Normal head/brain MRA. Electronically signed by: Alfa Edwards MD 08/15/22 01:41 AM
[2022-08-15 03:50] LABS: Hematocrit (blood only) 42.4 % (42.0-52.0); Hemoglobin 15.1 g/dl (14.0-18.0); Mean Corpuscular Hemoglobin 32.8 pg (25.0-34.0); Mean Corpuscular Hgb Conc 35.6 g/dL (32.0-36.0); Mean Platelet Volume 11.1 fL (9.4-12.4); Platelet Count 206 K/uL (130-400); RDW Coefficient of Variation 13.2 % (11.5-14.5); RDW Standard Deviation 44.3 fL (36.4-46.3); Red Blood Count 4.61 M/uL (4.70-6.10); White Blood Count 6.94 K/ul (4.8-10.8)
[2022-08-15 03:54] LABS: BUN Creatinine Ratio 26.2 (10-20); Chol HDL Ratio 3.1 (0-5); Creatinine Clr Calc Pharmacy 84.6 ml/min; Est GFR (African American) 98.6 ml/min; Est GFR (Non-African American) 85.1 ml/min; Potassium 3.8 mmol/L (3.5-5.1)
[2022-08-15 04:03] LABS: Partial Thromboplastin Ratio 1.4
--- NOTE | 2022-08-15 09:24 | XCELERA ---
[id number]
--- NOTE | 2022-08-15 10:49 | Electrocardiogram Report ---
Test Reason : Blood Pressure : / mmHG Vent. Rate : 072 BPM Atrial Rate : 000 BPM P-R Int : 000 ms QRS Dur : 098 ms QT Int : 418 ms P-R-T Axes : 000 -11 068 degrees QTc Int : 457 ms Atrial fibrillation Minimal voltage criteria for LVH, may be normal variant ( R in aVL ) Nonspecific T wave abnormality Abnormal ECG When compared with ECG of 03-SEP-2012 16:44, Atrial fibrillation has replaced Sinus rhythm Vent. rate has increased BY 25 BPM Nonspecific T wave abnormality now evident in Lateral leads QT has lengthened Confirmed by Paulo Barrientos ([id number]) on 08/15/2022 10:48:33 AM Referred By: Confirmed By:Paulo Barrientos
--- NOTE | 2022-08-15 10:51 | Electrocardiogram Report ---
Test Reason : Blood Pressure : / mmHG Vent. Rate : 063 BPM Atrial Rate : 000 BPM P-R Int : 000 ms QRS Dur : 100 ms QT Int : 420 ms P-R-T Axes : 000 005 068 degrees QTc Int : 429 ms Atrial fibrillation Abnormal ECG When compared with ECG of 14-AUG-2022 16:08, (unconfirmed) No significant change was found Confirmed by Paulo Barrientos ([id number]) on 08/15/2022 10:51:41 AM Referred By: Carmelina Day Confirmed By:Paulo Barrientos
[2022-08-15] MEDS ORDERED: lisinopril 20 MG TAB PO STA (12:41)
--- NOTE | 2022-08-15 13:48 | Communication Note ---
Date of Service: August 15, 2022 By CMS guidelines, a determination that the admission or continued stay is not medically necessary has been made by a member of the UR committee and a physic gali for this hospital stay, therefore a Code 44 will be completed and the Inpatient admission will be changed to outpatient.
[2022-08-15 14:01] LABS: Partial Thromboplastin Ratio 1.9
[2022-08-15 14:22] LABS: Partial Thromboplastin Time 52.7 Seconds (21.0-31.0)
--- NOTE | 2022-08-15 18:33 | Discharge Summary ---
Date of Service August 15, 2022 Admission HPI Per Admitting Provider 77 y/o male with a PMHx significant for prostate cancer s/p prostatectomy in remission here for evaluation of intermittent blurry vision with associated head pressure and occasional right arm weakness. Patient has had five episodes of the above symptoms that last about 10-15 minutes in duration starting about 5-6 weeks ago. Most recent episodes were 08/12 and 08/13. The rapid sequence of symptoms prompted him to seek evaluation. He was prompted to the ED by his PCP. He denies any extremity pain/numbness/tingling with these episodes, urinary or fecal incontinence, CP, or SOB. Prior to this the patient was in good health with no chronic conditions. He does not take any medications. Of note patient sees a chiropractor monthly for HVLA of the cervical spine. In the ED he was hypertensive to 172/116. EKG notable for atrial fibrillation. Patient was started on heparin. Labs: Notable for HsTrop 24.3. Otherwise CBC CMP PT/PTT/INR unremarkable. Imaging: CT Head w/o Principal Diagnosis TIA (probably hypertensive), new dx afib Discharge Exam gen aaox3 pleasant nad heent nc at mmm breathing unlabored no accessory muscles good effort skin no rashes no pallor or icterus neuro no focal deficits Discharge Data Allergies Allergy/AdvReac Type Severity Reaction Status Date / Time Penicillins Allergy Unknown Verified 02/06/22 08:53 Consultations 08/14/22 20:46 ED Decision to Admit Stat Ordered Studies 08/14/22 15:[address] [CT head/brain wo con] Stat 08/15/22 00:05 MR angio neck wo/w con Stat 08/15/22 00:06 MR angio head wo con Stat MR brain wo con Stat Hospital Course (1) TIA (transient ischemic attack): His fairly stereotyped, and repeated episodes of blurred vision and a general feeling of unwell/dizziness that would last for 5 to 10 minutes spontaneous onset spontaneous resolution seem to fit well with a TIA -- Given his lack of prior vascular disease, and very tight lipids, apparently quite active lifestyle, and no other evidence of vascular diseaseI doubt it is intracranial atherosclerosis (would defer to PCP about an additional antiplatelet, but I would hold for now given that I doubt the mechanism is atherosclerotic); does not have large vessel stenoses for large vessel atheroembolic. -Given his markedly elevated blood pressures, as well as his symptoms fitting with a hypertensive crisisI really suspect this was hypertension mediated TIAand will manage as new diagnosis of essential hypertension (see below) -He also was incidentally found to have atrial fibrillationand it is certainly difficult to rule out an A-fib related TIA (although given lack of any appearance on his MRI brain for prior embolic phenomenonrather what would fit with previous hypertensive phenomenon) I doubt A-fib was the culprit for his acute attacks (see A-fib section below) (2) Elevated blood pressure reading without diagnosis of hypertension: Discussed with patientwe will start to manage as essential hypertension Lisinopril 20 mg daily Basic metabolic panel 1-2 weeks Home blood pressure monitoring PCP follow-up (3) Atrial fibrillation with normal ventricular rate: Echocardiogram with findings that seem to be most consistent with a bit of a hypertensive cardiomyopathy (albeit mild) making it seem like that is probably the mechanism for onset of A-fib TSH deferred given that he is not in RVR, and his acute TIA/hypertensive crisis would make a sick euthyroid erroneous reading higher probabilitycan obtain TSH as an outpatient with basic metabolic panel in 1 to 2 weeks Outpatient evaluation for sleep apnea for completeness Rate is controlled, and actually he was in the 60s whenever I was seeing himhence lisinopril for hypertension rather than something that would be "double duty" for heart rate and blood pressure [id number] (depending on whether I count time is hypertensive or not) has him at moderate to high risk (4-6.7%) for strokeeither way anticoagulationEliquis Plan See discharge instructions, outpatient PCP follow-up Total Time Total Time Spent Total Time Spent (In Minutes): >30 Discharge Plan Discharge Items Patient Disposition: Home - Self-Care Reason For Visit: BLURRY VISION Discharge Diagnosis: TIA - see below Activity: Resume your previous activity Non-emergency contact: Primary Care Provider Call non-emergency contact if: you have any medication questions and your symptoms worsen Follow-up/Referrals: Carmelina Day MD [Primary Care Provider] - Diet: Regular Addtl Attending Provider Instructions: TIA -Your episodes of blurred vision are most consistent with what we would call a TIA (transient ischemic attack)as we discussed, a stroke is when there is lack of blood flow to your brain that actually leads to or damaged brain tissue, TIA occurs when there is impaired blood flow to the brain, but your body is able to correct the situation before there is any downstream damage -While we most commonly think about a TIA occurring with somebody with a lot of atherosclerosis (hardening of the arteries) in the brain, or with blocked blood vessels in their neck arteries that feed the brainneither of these are the case with you. -The 2 main reasons that you could have had the TIA are a high blood pressure mediated TIA (far and away the most likely), or small clots related to atrial fibrillation (less likely but possible)see below Hypertension -While we do commonly see people's blood pressure is higher in an acute care setting (in the ER/in the hospital/in the office) and when people are under more stress, your numbers are heading high enough levels that I really suspect you do have underlying hypertension. Further, when the top number gets above 200, or the bottom number above 100, the "door is open" for what we would call a hypertensive crisis to occurin that situation, the poor blood flow is more due to blood vessel spasm/clamped down than atherosclerosis/clotting. It is relatively common for a hypertensive crisis to show up with a headache and blurred vision episodes like you are having. This is a little different from a "classic" TIA given that it is far more of a blood vessel spasm issueand the mainstay of treating it is really going to be controlling her blood pressure -For now I have started you on a medicine called lisinoprilas we discussed, there are multiple ways to treat high blood pressure, but we generally see that medicines such as lisinopril, or similar medicines and similar classes of blood pressure medicines, do a better job and actually protecting people from heart attacks and strokes (as opposed to "simply treating the number"). Most people tolerate medications like lisinopril quite wellas we discussed, we will ask Dr Day to check lab work (basic metabolic panel) in about a week to make sure your kidneys tolerated, most people do, if there is anything odd it is very easy to correct when you have been on the medication a short time. Also like we discussed, a very small percentage of people (about 5%) develop an annoying dry coughand as we discussed, this can occur at any time on the medicineso even if it is 5 years from now if you start having an annoying dry cough that makes no sense, consider if it would be the lisinopril. That said, the enormous majority of people do not have either of these side effects, and medications like lisinopril do tend to do a nice job of making a dent in the blood pressure and improving the outcomes that we worry about (such as reducing heart attacks and strokes) -I would also recommend that you get an automated arm blood pressure cuff for homeand check your blood pressure 23 times a day (randomlysometimes whenever he first get up, sometimes before medicines, sometimes after medicines, sometimes when you are calm, sometimes when you are stressed) so that Dr. Day can get a "law of averages" for your blood pressure looks like to help guide whether or not we need to adjust medications, add additional medications, or manage things otherwise. -In a perfect world, a "totally normal" blood pressure is about 110/70, when we are treating blood pressure then the "risk/benefit" balance usually tends to shiftif we treat to a "totally normal" we will often cause a lot of weak/lightheaded/fatigue, and so for most people when we are treating hypertension, treating to about 140/90 (give or take) tends to be the best balance of protecting people against the side effects of uncontrolled high blood pressure, while also not exposing them to side effects of overmedication. Atrial fibrillation -Incidentally, we did see that your heart is in a rhythm called atrial fibrillation -As we discussed, this is actually fairly commonsomething on the order of 1 out of 20 of people over 65 years old will have atrial fibrillation simply due to their heart electrical system being over 65. While your echocardiogram was overall normal, it did give a hint that you may have had atrial fibrillation due to some longstanding strain from high blood pressure (that you probably did not even know you had) creating back pressure on the atria of your heart (where the atrial wiring is located). Because this wiring gets stretched out, it starts to become dysfunctionalwhich leads to the atria quivering instead of squeezing. For most people, this is not really something they feel on any given daymost people really only feel atrial fibrillation if the quivering atria make the heartbeat inappropriately fastwhich is not happening with you. Certainly it something that Dr. Day will help you keep an eye out for, and if your heart were to start to race, a simple adjustment of medicines that we used to treat the blood pressure over 2 medicines that can slow your heart rate and treat your blood pressure is often all that is needed (I did not do that to start because your heart rates have actually been low normal while you are here). The main thing that we have to worry about with you with the atrial fibrillation is that, when the top part of the heart is quivering rather than squeezing, it allows a stagnant pond form. In that stagnant pond, clots can formand unfortunately the "straight shot" of those clots if they flow down to the left ventricle is to go to your brain and cause a stroke. Its essentially impossible to "rule out" that atrial fibrillation did not lead to the TIA you are having with the blurred vision, but in my experience usually people with atrial fibrillation leading to the problems will often have a degree of damaged brain tissue noted on MRIi.e. physically they make a full functional recovery, but the MRI does show a little telltale signs of damage given that those clots can be difficult to fully dissolve once they have lodged in the brain. -That said, when we do the math for your risk of having a stroke as it relates to atrial fibrillation, you calculate out to be 4-6 %/year. Like we discussed earlier, that is not really a lot on any given day, but given that you will be with us for quite some time, over the next 20 years that is basically a 50% chance of having what could be a catastrophic stroke. What we usually do with atrial fibrillation is put people on a blood thinner (such as Eliquis) because being on the blood thinner takes that stroke risk and basically makes it 0%. Obviously whenever somebody is on a blood thinner there is a higher risk of the bleeding than not being on it (but also obviously, we are putting you on it because it is much easier to treat a bleed then give back brain tissue that is been /damaged). The blood thinners like Eliquis in my experience (as well as in the literature) are overall a much lower risk of bleeding than the older blood thinners like Coumadin, and when there is bleeding it is more likely to be gastrointestinal bleeding (which are usually pretty easy to take care of, even if they appear scary at the time). For real though, most people simply have a bit more of "nuisance bleeding"such as if it is a nosebleed it could be a little bit more of a gusher that takes a little while, or if you cut yourself at work it may be more annoying and take a little while to stop. As a reasonable rule for safety, if you have bleeding that you can put pressure on it, put pressure on it and then look at the clock. Any bleeding that resolves in 10 minutes or less is in the category of "nuisance" and that also sets up a nice role for safety because if it does not resolve in 10 minutes or less, that nosebleed might need to be packed/cauterized, or the cut might need to have a stitch put in it. With what you do for living, this will be where you will also need to discuss with Dr Day how much the blood thinner impacts you on the joblike we discussed, while it would technically be "off the beaten path" to do this, the blood thinners like Eliquis kick in/wear off so quickly that it would be "reasonable but risky" to skip a dose on days where you are doing a lot more physical labor/risk of cut is more. (Like we discussed, that would be technically like encouraging you to "cross the street with your eyes closed" but it would be in the context of basically being a neighborhood cul-de-sac at 2 in the morning). -As a separate, incidental thought as it relates to atrial fibrillationI suspect for you the atrial fibrillation came from having back pressure from high blood pressure that you did not know you had causing a stretch on your atria, but at the same time undiagnosed sleep apnea is also a very common cause that we see for atrial fibrillationthere is certainly nothing we need to do about that acutely, but I would discuss further with Dr. Day if she feels like a sleep study could be warranted To Do: take the lisinopril 20mg daily -check your blood pressure at home with an automated arm BP cuff 2-3 times a day, randomly, and write down the numbers -have labwork (BMP) drawn at Dr Day's in 1-2wks take the eliquis 5mg twice a day have a great time on your trip to [place] this summer Pending Studies at Discharge: No Stand-Alone Forms: [facility], Smoking Cessation Medications and DC Order Prescriptions: New lisinopril 20 mg tablet 20 mg PO DAILY Qty: 30 0RF Eliquis 5 mg tablet 5 mg PO BID Qty: 60 0RF No Action No Known Home Medications Discharge Orders: Discharge Order (Routine); Ordered 08/15/22 Ordered By: Demetrius Omer Admission Data Admit Date/Time: 08/14/22 21:40 Attending Provider: Demetrius Omer Admit Provider: Theresa Witt Primary Care Provider: Carmelina Day Other Providers: Prosper Campos Other Interventions: Discharge Summary Assessment (RN) Last Done: 08/15/22 14:12 Coding Level of Care Code 99077 INP/OBS DISCH >30 MIN Diagnoses TIA (transient ischemic attack) G45.9 Elevated blood pressure reading without diagnosis of hypertension R03.0 Atrial fibrillation with normal ventricular rate I48.91
--- NOTE | 2022-08-15 21:53 | Billing Data ---
Date of Service August 15, 2022 Coding Level of Care Code 01845 INT INP/OBS CARE
== END 2022-08-15 14:12 | disposition home or self-care (01) | DRG 301 ==
LOC: ED 15:43 → EDINP 21:40 → SUATTDRO 21:40 → INTOOBSV 21:40 → EDINP 22:46